=== PATIENT | male | born 1960 | race Caucasian/White ===

== ENCOUNTER 2021-09-15 16:12 | Outpatient (REF) | payer BC, SELFPAY ==
[2021-09-15 17:46] LABS: MANUAL DIFF FLAG NO
[2021-09-15 18:04] LABS: Basophils Absolute Auto 0.1 X10*3/uL (0.0-0.2); Basophils Percent Auto 0.8 % (0-2); Eosinophils Absolute Auto 0.4 X10*3/uL (0.0-0.4); Eosinophils Percent Auto 4.9 % (0-4); Hematocrit 45.2 % (42.0-52.0); Imm Gran Abs Auto 0.04 X10*3/uL (0.00-0.03); Imm Gran Pct Auto 0.5 % (0.0-0.4); Lymphocytes Absolute Auto 2.3 X10*3/uL (1.2-4.9); Lymphocytes Percent Auto 30.3 % (20-40); Mean Corpuscular HGB Conc 33.2 g/dl (31.0-36.0); Mean Corpuscular Hemoglobin 29.9 pg (27.0-33.0); Mean Platelet Volume 10.5 fL (9.4-12.4); Monocytes Absolute Auto 0.6 X10*3/uL (0.1-1.2); Monocytes Percent Auto 7.7 % (2-11); Neutrophils Absolute Auto 4.1 x10*3/uL (2.0-8.3); Neutrophils Percent Auto 55.8 % (45-73); Platelet Count 269 X10*3/uL (160-400); Red Blood Count 5.02 X10*6/uL (4.60-5.80); Red Cell Distribution Width 13.2 % (11.0-16.0); White Blood Count 7.4 X10*3/uL (4.8-10.8)
[2021-09-15 18:09] LABS: Alanine Aminotransferase 24 U/L (0-40); Albumin Level 4.1 g/dL (3.5-5.0); Alkaline Phosphatase 75 U/L (39-117); Anion Gap 11 (12-20); Aspartate Amino Transferase 14 U/L (5-37); Bilirubin Total 0.5 mg/dL (0.0-1.0); Blood Urea Nitrogen 21 mg/dL (9-16); Calcium 9.5 mg/dL (8.4-10.2); Carbon Dioxide 29 mmol/L (22-29); Chloride 105 mmol/L (96-108); Estimated Glomerular Filt Rate > 60; Glucose Random 89 mg/dL (60-115); Potassium 4.4 mmol/L (3.3-5.1); Sodium 141 mmol/L (135-145); Total Protein 6.7 g/dL (6.5-8.0)
[2021-09-15 18:29] LABS: Thyroid Stimulating Hormone 3.79 uIU/mL (0.32-4.0); Vitamin D 25-OH Total 36.5 ng/mL (>30)
[2021-09-16 06:30] LABS: Estimated Average Glucose 123 mg/dL; Hemoglobin A1c % 5.9 %
== END 2021-09-15 16:13 | disposition home or self-care (01) ==
LOC: HO.MANLDS 16:12
PROVIDERS: PCP Internal Medicine; Visit Provider Internal Medicine
DX: R73.01 Impaired fasting glucose (principal)
CPT/HCPCS: 36415; 80053; 82306; 83036; 84443; 85025

== ENCOUNTER 2023-09-12 11:21 | Outpatient (REF) | payer BC, SELFPAY ==
[2023-09-12 13:48] LABS: Estimated Average Glucose 117 mg/dL; Hemoglobin A1c % 5.7 % (<6.0)
[2023-09-12 14:42] LABS: Creatinine Urine 213.19 mg/dL; Microalbum/Creatinine Ratio Ur 10.3 ug/mg cr (<30)
[2023-09-12 14:48] LABS: Alanine Aminotransferase 30 U/L (0-40); Albumin Level 3.9 g/dL (3.5-5.0); Alkaline Phosphatase 73 U/L (39-117); Anion Gap 8 (12-20); Aspartate Amino Transferase 16 U/L (5-37); Bilirubin Total 0.5 mg/dL (0.0-1.0); Blood Urea Nitrogen 22 mg/dL (9-16); Calcium 9.1 mg/dL (8.4-10.2); Carbon Dioxide 27 mmol/L (22-29); Chloride 107 mmol/L (96-108); Estimated Glomerular Filt Rate > 60; Glucose Random 103 mg/dL (60-115); Potassium 3.8 mmol/L (3.3-5.1); Sodium 138 mmol/L (135-145); Total Protein 6.9 g/dL (6.5-8.0)
[2023-09-12 14:51] LABS: Free T4 (Free Thyroxine) 0.75 ng/dL (0.71-1.85)
== END 2023-09-12 11:22 | disposition home or self-care (01) ==
LOC: HO.MANLDS 11:21
PROVIDERS: Visit Provider Internal Medicine
DX: E03.9 Hypothyroidism, unspecified (principal); E11.9 Type 2 diabetes mellitus without complications
CPT/HCPCS: 36415; 80053; 82043; 82570; 83036; 84439; 84443

== ENCOUNTER 2023-10-11 08:26 | Outpatient (REF) | payer BC, SELFPAY ==
[2023-10-11 13:45] LABS: Estimated Average Glucose 117 mg/dL; Hemoglobin A1c % 5.7 % (<6.0)
[2023-10-11 13:52] LABS: Creatinine Urine 270.59 mg/dL; Microalbum/Creatinine Ratio Ur 9.6 ug/mg cr (<30)
[2023-10-11 13:54] LABS: Alanine Aminotransferase 27 U/L (0-40); Albumin Level 3.6 g/dL (3.5-5.0); Alkaline Phosphatase 152 U/L (39-117); Anion Gap 13 (12-20); Aspartate Amino Transferase 18 U/L (5-37); Bilirubin Total 0.5 mg/dL (0.0-1.0); Blood Urea Nitrogen 21 mg/dL (9-16); Carbon Dioxide 26 mmol/L (22-29); Chloride 106 mmol/L (96-108); Cholesterol 124 mg/dL (<200); Estimated Glomerular Filt Rate > 60; Glucose Random 92 mg/dL (60-115); HDL Cholesterol 31 mg/dL (>40); LDL Cholesterol Calculated 83 mg/dL (<100); Sodium 141 mmol/L (135-145); Total Protein 6.8 g/dL (6.5-8.0); Triglycerides 53 mg/dL (<150)
== END 2023-10-11 08:27 | disposition home or self-care (01) ==
LOC: HO.MANLDS 08:26
PROVIDERS: Visit Provider Internal Medicine
DX: E11.9 Type 2 diabetes mellitus without complications (principal)
CPT/HCPCS: 36415; 80053; 80061; 82043; 82570; 83036

== ENCOUNTER 2023-10-17 12:04 | Outpatient (REF) | payer BC, SELFPAY ==
[2023-10-17 18:37] LABS: Free T4 (Free Thyroxine) 0.86 ng/dL (0.71-1.85); Thyroid Stimulating Hormone 5.33 uIU/mL (0.32-4.0)
== END 2023-10-17 12:05 | disposition home or self-care (01) ==
LOC: HO.MANLDS 12:04
PROVIDERS: Visit Provider Internal Medicine
DX: E03.9 Hypothyroidism, unspecified (principal)
CPT/HCPCS: 36415; 84439; 84443

== ENCOUNTER 2024-01-30 11:21 | Outpatient (REF) | payer BC, SELFPAY ==
[2024-01-30 13:10] LABS: Appearance Urine Clear; Color Urine Yellow; Glucose Urine UA Negative (Negative); Leukocyte Esterase Urine Moderate (2+) (Negative); Nitrite Urine Negative (Negative); Specific Gravity - Urine 1.015 (1.005-1.025); UMIC TRIGGER UACC YES; Urine Blood Trace (Negative); Urine Ketones Negative (Negative); Urine Protein Negative (Neg-Trace)
[2024-01-30 13:39] LABS: Bacteria Urine None Seen (None Seen); Hyaline Casts Urine 0-2 /LPF (0-2); Squamous Epithelial Cell Urine 0-2 /HPF (0-2); UACC Culture Trigger YES; WBC Urine >50 /HPF (0-5)
== END 2024-01-30 11:22 | disposition home or self-care (01) ==
LOC: HO.MANLNP 11:21
PROVIDERS: Visit Provider Internal Medicine
DX: R30.0 Dysuria (principal)
CPT/HCPCS: 81001; 81003; 87086

== ENCOUNTER 2024-08-21 12:10 | Outpatient (REF) | payer SELFPAY ==
--- OUTSIDE RECORDS SUMMARY | 2024-08-21 15:19 | XMS_ITS | Data Portability ---
Author Organization [facility] (formerly [facility], Home Service Address [address] [address] Assessment Encounter Date Assessment Date Assessment LastModified by Organization Details LastModified Time 09/16/2023 09/16/2023 [id number] [place] [id number] (CHAIR MAKER) MDM MODERATE MUST MEET 2 OUT OF 3 ELEMENTS: PROBLEMS, DATA OR RISK ELEMENT 1: PROBLEMS ADDRESSED 1 OR MORE CHRONIC ILLNESS WITH EXACERBATION OR 2 OR MORE STABLE CHRONIC ILLNESSES OR 1 UNDIAGNOSED NEW PROBLEM OR 1 ACUTE ILLNESS W/SYMPTOMS OR 1 ACUTE COMPLICATED INJURY ELEMENT 2: DATA MUST MEET 1 OF 3 CATEGORIES CATEGORY 1: REVIEW OF PRIOR EXTERNAL NOTES, REVIEW OF RESULTS, ORDERING OF EACH TEST, ASSESSMENT REQUIRING INDEPENDENT HISTORIAN OR CATEGORY 2: INDEPENDENT INTERPRETATION OF TESTS BY ANOTHER PHYSICIAN OR SPECIALIST OR CATEGORY 3: DISCUSSION OF MGT OR TEST INTERPRETATION W/EXTERNAL PHYSICIAN OR SPECIALIST ELEMENT 3: RISK RISK OF COMPLICATIONS AND/OR MORBIDITY OR MORTALITY OF PATIENT MANAGEMENT PROVIDER MUST THOROUGHLY DOCUMENT EACH ELEMENT THAT IS COVERED Not available 09/16/2023 15:28:28 11/22/2023 11/22/2023 [id number] [place] [id number] (CHAIR MAKER) MDM HIGH MUST MEET 2 OUT OF 3 ELEMENTS: PROBLEMS, DATA OR RISK ELEMENT 1: PROBLEMS 1 OR MORE CHRONIC ILLNESS W/SEVERE EXACERBATION, PROGRESSION MAY REQUIRE HOSPITAL LEVEL CARE OR 1 ACUTE OR CHRONIC ILLNESS OR INJURY THAT POSES A THREAT TO LIFE OR BODILY FUNCTION ELEMENT 2: DATA: MUST MEET 2 OF 3 CATEGORIES CATEGORY 1 REVIEW OF PRIOR EXTERNAL NOTES REVIEW OF THE RESULTS ORDERING OF EACH TEST ASSESSMENT REQUIRING INDEPENDENT HISTORIAN(S) CATEGORY 2: INDEPENDENT INTERPRETATION OF TESTS BY ANOTHER PROVIDER/SPECIALI ST CATEGORY 3: DISCUSSION OF MGT OR TEST INTERPRETATION W/EXTERNAL PHYSICIAN/SPECIAL IST ELEMENT 3: RISK HIGH RISK OF MORBIDITY FROM ADDITIONAL DIAGNOSTIC TESTING OR TREATMENT PROVIDER MUST THOROUGHLY DOCUMENT EACH ELEMENT THAT IS COVERED Not available 11/22/2023 14:46:18 01/30/2024 01/30/2024 [id number] [place] [id number] (CHAIR MAKER) MDM HIGH MUST MEET 2 OUT OF 3 ELEMENTS: PROBLEMS, DATA OR RISK ELEMENT 1: PROBLEMS 1 OR MORE CHRONIC ILLNESS W/SEVERE EXACERBATION, PROGRESSION MAY REQUIRE HOSPITAL LEVEL CARE OR 1 ACUTE OR CHRONIC ILLNESS OR INJURY THAT POSES A THREAT TO LIFE OR BODILY FUNCTION ELEMENT 2: DATA: MUST MEET 2 OF 3 CATEGORIES CATEGORY 1 REVIEW OF PRIOR EXTERNAL NOTES REVIEW OF THE RESULTS ORDERING OF EACH TEST ASSESSMENT REQUIRING INDEPENDENT HISTORIAN(S) CATEGORY 2: INDEPENDENT INTERPRETATION OF TESTS BY ANOTHER PROVIDER/SPECIALI ST CATEGORY 3: DISCUSSION OF MGT OR TEST INTERPRETATION W/EXTERNAL PHYSICIAN/SPECIAL IST ELEMENT 3: RISK HIGH RISK OF MORBIDITY FROM ADDITIONAL DIAGNOSTIC TESTING OR TREATMENT PROVIDER MUST THOROUGHLY DOCUMENT EACH ELEMENT THAT IS COVERED Not available 01/30/2024 11:16:47 Plan of Treatment Reminders Order Date Submit Date Provider Last Modified By Organization Details Last Modified Time Details Appointments None recorded. Lab urinalysis complete, reflex culture 2023 024 [facility], [address] [place] [address], [address], 4 11:11:26 TSH + free T4, serum 2023 024 [facility], [place], [address], 4 11:15:07 TSH, serum or plasma 2023 024 [facility], [address] [place] [address], [address], 4 15:31:[address] referral 2023 024 michael Deshpande MD, [address] [place] [address], [address], 4 08:14:45 Procedures None recorded. Surgeries None recorded. Imaging None recorded. Medication Orders triamcinol one acetonide 0.1 % topical cream 2023 024 [id number], [address] [place], [address], 14:45:34 amoxicilli n 500 mg tablet 2023 024 [id number], [address] [place], [address], 14:21:39 levothyrox ine 25 mcg tablet 2023 024 [id number], [address] [place], [address], 10:39:33 Patient TargetsNo targets recorded. Patient Instructions Encounter Date Encounter Id Patient Instructions Last Modified By Organization Details Last Modified Time 09/16/2023 [id number] hypothyroidism: care instructions Not available 09/16/2023 15:30:00 01/30/2024 [id number] painful urinatio n (dysuria): care instructions Not available 01/30/2024 11:15:13 leg and ankle edema: care instructions Not available 01/30/2024 11:13:41 aortic valve stenosis: care instructions Not available 01/30/2024 11:13:41 hypothyroidism: care instructions Not available 01/30/2024 11:13:41 chronic obstructive pulmonary disease (COPD): care instructions Not available 01/30/2024 11:13:41 learning about copd and how to prevent lung infections Not available 01/30/2024 11:13:41 03/13/2024 [id number] pulse oximetry* Not available 03/13/2024 12:08:22 Reason for Referral Director Workforce Management Referral for At rial fibrillation needs referral; hx of afib, open heart surgery (insurance referral) Referring Physician: Heather Peralta, Internal Medicine, Encounter Date: 10/12/2023 Results Created Date Observation Date Name Description Value Unit Range Abnormal Flag Note LastModifiedBy Organization Detail LastModifiedTime 09/05/1909/05/2023 pulse oxime try* Result 96 Not Available [facility] [address], [place], [address], 08/30/2023 10:45:54 03/13/2003/13/2024 pulse oxime try* Result 95 Not Available [facility] [address], [place], [address], 03/12/2024 08:40:52 Result Notes None recorded. Problems Name Problem SNOMED Code Status Onset Date Resolution Date Notes Provider Name and Address Organization Details Recorded Time Allergic rhinitis 24176022 Active 2021 Not Available [facility] 3 12:53:18 Type 2 diabetes mellitus 55348829 Active 2022 Not Available [facility] 3 12:53:18 Acute systolic heart failure 187729775 Completed 202211/22/2023 Ceferino Wright DO [address] [place] [address], [address], [facility] 4 14:43:57 Atrial fibrilla tion 46679636 Completed 202211/22/2023 Ceferino Wright DO [address] [place] [address], [address], [facility] 4 14:43:46 Severe aortic valve stenosis 526155884 Completed 202211/22/2023 Ceferino Wright DO [address] [place] [address], [address], [facility] 4 14:43:39 Pain of left shoulder joint 2868881188 4068003 Active 2022 Ceferino Wright DO [address] [place] [address], [address], [facility] 3 23:23:14 Tendinit is of left rotator cuff 6368685570 0032050 Active 2022 Ceferino Wright DO [address] [place] [address], [address], [facility] 3 15:32:36 Congesti ve heart failure 98693892 Completed 202311/22/2023 Ceferino Wright, DO [address] [place] [address], [address], [facility] 4 14:43:34 Hypothyr oidism 69632455 Active 2023 Ceferino Wright, DO [address] [place] [address], [address], [facility] 4 16:13:38 Eczema 98946840 Active 2023 Ceferino Wright, DO [address] [place] [address], [address], [facility] 4 14:44:10 Allergic reaction to drug 074489182 Active 2023 Ceferino Wright, DO [address] [place] [address], [address], [facility] 4 22:23:10 Aortic valve stenosis 68446922 Active 2023 bicuspid Ceferino Wright DO [address] [place] [address], [address], [facility] 4 14:34:50 Edema of lower extremit y 544156318 Active 2023 Ceferino Wright, DO [address] [place] [address], [address], [facility] 4 11:09:15 Dysuria 51845258 Active 2023 Ceferino Wright DO [address] [place] [address], [address], [facility] 4 11:14:23 Acute urinary tract infectio n 047376872 Active 2023 Ceferino Wright DO [address] [place] [address], [address], [facility] 4 16:14:37 Asthma 292918504 Active 2017 Not Available [facility] 3 12:53:18 Chronic obstruct jesus pulmonar y disease 67507943 Active 2017 Not Available [facility] 3 12:53:18 Tobacco user 903241243 Active 2017 Not Available [facility] 3 12:53:18 Tinea pedis 0920716 Active 2017 Not Available [facility] 3 12:53:18 Problem Notes None recorded. Medical Equipment None Reported. Allergies No known drug allergies Medications Name Sig Start Date Stop Date Status Note LastModified by Organization Details LastModified Time cyclobenzap rine 10 mg tablet TAKE 1 TABLET BY MOUTH 2 TIMES A DAY BEFORE BREAKFAST AND DINNER 11/21 completed Not Available Not Available Not Available furosemide 40 mg tablet TAKE 1 TABLET BY MOUTH EVERY DAY IN THE MORNING 2023 active Not Available Not Available Not Avai lable bupropion HCl SR 150 mg tablet,12 hr sustained-r elease Take 1 tablet twice a day by oral route for 30 days. 08/10 completed Not Available Not Available Not Available atorvastati n 80 mg tablet TAKE 1 TABLET BY MOUTH EVERY DAY active Not Available Not Available No t Available cetirizine 10 mg tablet TAKE 1 TABLET BY MOUTH EVERY DAY 2023 active Not Available Not Available Not Avai lable metoprolol tartrate 100 mg tablet TAKE 1 TABLET (100 MG TOTAL) BY MOUTH 2 (TWO) TIMES A DAY. 01/29 completed Not Available Not Available Not Available amiodarone 200 mg tablet TAKE 1 TABLET BY MOUTH EVERY DAY active Not Available Not Available No t Available metoprolol succinate ER 50 mg tablet,exte nded release 24 hr TAKE 1 TABLET BY MOUTH EVERY DAY active Not Available Not Available No t Available fluconazole 200 mg tablet Take 1 tablet every day by oral route for 7 days. 03/27 completed Not Available Not Available Not Available ciprofloxac in 500 mg tablet TAKE 1 TABLET BY MOUTH EVERY 12 HOURS FOR 7 DAYS active Not Available Not Available No t Available aspirin 81 mg tablet,hang yed release TAKE 1 TABLET BY MOUTH EVERY DAY active Not Available Not Available No t Available triamcinolo ne acetonide 0.1 % topical cream APPLY THIN COAT TO AFFECTED AREA TWICE A DAY 2023 active Not Available Not Available Not Avai lable spironolact one 25 mg tablet TAKE 1 TABLET (25 MG TOTAL) BY MOUTH DAILY. PLEASE CONTACT YOUR CARDIOLOG IST FOR REFILLS active Not Available Not Available No t Available amoxicillin 500 mg tablet TAKE 4 TABLETS BY MOUTH EVERY DAY FOR 1 DAY active Not Available Not Available No t Available levothyroxi ne 25 mcg tablet TAKE 1 TABLET BY MOUTH EVERY DAY FOR 30 DAYS 01/29 completed Not Available Not Available Not Available levothyroxi ne 75 mcg tablet TAKE 1 TABLET BY MOUTH EVERY DAY FOR 30 DAYS active Not Available Not Available No t Available potassium chloride ER 20 mEq tablet,exte nded release(par t/cryst) TAKE 1 TABLET BY MOUTH EVERY DAY FOR 7 DAYS 11/21 completed Not Available Not Available Not Available tamsulosin 0.4 mg capsule TAKE 1 CAPSULE BY MOUTH EVERY DAY active Not Available Not Available No t Available levothyroxi ne 50 mcg tablet 1 po qd 2024 active Not Available Not Available Not Avai lable docusate sodium 100 mg capsule TAKE 2 CAPSULES BY MOUTH EVERY DAY 11/21 completed Not Available Not Available Not Available montelukast 10 mg tablet TAKE 1 TABLET BY MOUTH EVERY DAY active Not Available Not Available No t Available halobetasol propionate 0.05 % topical cream 08/10 completed Not Available Not Available Not Available digoxin 125 mcg (0.125 mg) tablet TAKE 1 TABLET (0.125 MG TOTAL) BY MOUTH DAILY. PLEASE CONTACT YOUR CARDIOLOG IST FOR REFILLS 10/11 completed Not Available Not Available Not Available furosemide 20 mg tablet TAKE 1 TABLET BY MOUTH DAILY 04/08 completed Not Available Not Available Not Available methylpredn isolone 4 mg tablets in a dose pack TAKE 6 TABLETS ON DAY 1 DIRECTED ON PACKAGE AND DECREASE BY 1 TAB EACH DAY FOR A TOTAL OF 6 DAYS 01/29 completed Not Available Not Available Not Available albuterol sulfate HFA 90 mcg/actuati on aerosol inhaler TAKE 2 PUFFS BY MOUTH EVERY 4 HOURS NEEDED active Not Available Not Available No t Available ketoconazol e 2 % topical cream 08/10 completed Not Available Not Available Not Available fluticasone propionate 50 mcg/actuati on nasal spray,suspe nsion INHALE 1 SPRAY UP THE NOSTRIL ONCE A DAY active Not Available Not Available No t Available rosuvastati n 10 mg tablet Take 1 tablet every day by oral route for 90 days. 03/27 completed Not Available Not Available Not Available metoprolol tartrate 25 mg tablet TAKE 1 TABLET BY MOUTH TWICE A DAY 11/21 completed Not Available Not Available Not Available doxycycline hyclate 100 mg tablet,hang yed release TAKE 1 TABLET BY MOUTH TWICE DAILY FOR 7 DAYS 09/15 completed Not Available Not Available Not Available spironolact one 09/15 completed Not Available Not Available Not Available Xarelto 20 mg tablet TAKE 1 TABLET (20 MG TOTAL) BY MOUTH DAILY WITH DINNER. PLEASE CONTACT YOUR CARDIOLOG IST FOR REFILLS 11/21 completed Not Available Not Available Not Available Eliquis 5 mg tablet TAKE 1 TABLET BY MOUTH TWICE A DAY active Not Available Not Available No t Available fluticasone furoate 200 mcg-vilante rol 25 mcg/dose inhalation powder TAKE 1 PUFF BY MOUTH TWICE A DAY 2024 active Not Available Not Available Not Avai lable Entresto 24 mg-26 mg tablet TAKE 1 TABLET BY MOUTH 2 (TWO) TIMES A DAY. PLEASE CONTACT YOUR CARDIOLOG IST FOR REFILLS 09/04 completed Not Available Not Available Not Available Vitals Date Recorded Body height Body mass index (BMI) Body weight Heart rate Oxygen saturation Oxygen saturation in Arterial blood by Pulse oximetry Systolic blood pressure Diastolic blood pressure Provider Name and Address Organization Details Last Updated DateTime 4 190.5 cm 37.2 kg/m2 362562. 81 g 70 /min 95 % 95 % 128 mm[Hg] 76 mm[Hg] Jenny Quinn [facility] 4 14:51:02 Date Recorded Body height Body mass index (BMI) Body weight Heart rate Respiratory rate Oxygen saturation Oxygen saturation in Arterial blood by Pulse oximetry Body temperature Systolic blood pressure Diastolic blood pressure Provider Name and Address Organization Details Last Updated DateTime 4 190.5 cm 38.7 kg/m2 073215. 63 g 68 /min 18 /min 98 % 98 % 98.1 [degF] 136 mm[Hg] 80 mm[Hg] Yamil Andrade [facility] 4 10:47:21 Date Recorded Body height Body mass index (BMI) Body weight Heart rate Respiratory rate Oxygen saturation Oxygen saturation in Arterial blood by Pulse oximetry Systolic blood pressure Diastolic blood pressure Provider Name and Address Organization Details Last Updated DateTime 4 193.04 cm 37 kg/m2 779538. 8 g 98 /min 18 /min 92 % 92 % 138 mm[Hg] 82 mm[Hg] Yamil Andrade [facility] 4 14:21:03 Date Recorded Body height Body mass index (BMI) Body weight Heart rate Oxygen saturation Oxygen saturation in Arterial blood by Pulse oximetry Systolic blood pressure Diastolic blood pressure Provider Name and Address Organization Details Last Updated DateTime 4 193.04 cm 36.6 kg/m2 679818. 87 g 79 /min 97 % 97 % 166 mm[Hg] 92 mm[Hg] Yamil Andrade [facility] 4 10:41:08 Date Recorded Body height Body mass index (BMI) Body weight Heart rate Oxygen saturation Oxygen saturation in Arterial blood by Pulse oximetry Systolic blood pressure Diastolic blood pressure Provider Name and Address Organization Details Last Updated DateTime 4 193.04 cm 36.4 kg/m2 304093. 12 g 92 /min 95 % 95 % 128 mm[Hg] 78 mm[Hg] Karen Hughes [facility] 4 11:44:18 Social History Question Answer Notes LastModified by Organizat ion Details LastModified Time Tobacco Smoking Status Former Smoker Not Available [facility] 04/22/2020 03:36:23 What Is Your Level Of Alcohol Consumption? Occasional [id number] Information not available 04/22/2020 What Is Your Level Of Caffeine Consumption? Moderate 3-4 Cup Coffee Per Day [id number] Information not available 04/22/2020 Do You Or Have You Ever Used E-cigarettes Or Vape? Current User Of Electronic Cigarettes [email or web address] Information not available 03/11/2023 What Was The Date Of Your Most Recent Tobacco Screening? 01/30/2024 [email or web address] Information not available 01/30/2024 Do You Use Any Illicit Or Recreational Drugs? No [email or web address] Information not available 03/11/2023 Do You Or Have You Ever Used Any Other Forms Of Tobacco Or Nicotine? No [email or web address] Information not available 09/05/2023 Sex: Unknown Functional Status Question Answer Note LastModified by Organization D etails LastModified Time What is your exercise level? None [id number] Information not available 04/22/2020 Mental Status None recorded. Family History Nothing Reported. Medical History No medical history recorded. Immunizations Vaccine Type Date Status Note Provider Nam e and Address Organization Details Recorded Time zoster recombinant 2 completed Not Available [facility] 06/08/2023 17:01:31 COVID-19, mRNA, LNP-S, PF, 30 mcg/0.3 mL dose 1 completed Not Available [facility] 06/08/2023 17:01:31 COVID-19, mRNA, LNP-S, PF, 30 mcg/0.3 mL dose 1 completed Not Available [facility] 06/08/2023 17:01:31 COVID-19, mRNA, LNP-S, PF, 30 mcg/0.3 mL dose 1 completed Not Available [facility] 06/08/2023 17:01:31 Influenza, split virus, quadrivalent, preservative 1 completed Not Available [facility] 06/08/2023 17:01:31 zoster recombinant 2 completed Not Available [facility] 06/08/2023 17:01:31 Influenza, split virus, quadrivalent, preservative 8 completed Not Available [facility] 06/08/2023 17:01:31 Influenza, split virus, quadrivalent, preservative 9 completed Not Available [facility] 06/08/2023 17:01:31 Past Encounters Encounter ID Performer Location Encounter Start Date Encounter Closed Date Diagnosis/Indication Diagnosis SNOMED-CT Code Diagnosis ICD10 Code Diagnosis Note [id number] DO Cherelle Harper [facility] [address] [address] 11/22/2017 15:29:46 11/22/2017 16:19:17 Chronic obstructive pulmonary disease 77442546 J44.9 here for rechk and still smoking but quit last month but smoked again and then tried to quit again Impaired f asting glycemia 672776677 R73.01 needs a1c draawn Asthma 674439606 J45.90 9 ok to cont symbicort as long as he feels ok breo rx ok in 1 week Tobacco user 880793939 Z 72.0 will try to use wellbutrin Tinea pedis 0657417 B35. 3 diflucan as it is not clearing [id number] Ceferino Wright [facility] [address] [address] 01/10/2018 14:57:54 01/10/2018 16:18:16 Tobacco user 787008608 Z72.0 will try to use wellbutrin Chronic ob structive pulmonary disease 60902284 J44.9 here for rechk and still smoking but quit last month but smoked again and then tried to quit again Impaired f asting glycemia 983954818 R73.01 needs a1c drawn still not done [id number] Ceferino Wright [facility] [address] [address] 03/27/2019 10:20:22 03/27/2019 11:42:26 Adult health examination 876040028 Z00.01 overweight but has quit smoking does have a lot of fatigue stopped using tobacco is vaping Hepatitis C screening 41 5485433 Z11.59 Screening for malignant neoplasm of colon 223975233 Z12.11 Asthma 009776637 J45.90 9 ok to cont symbicort as long as he feels ok breo rx ok in 1 week [id number] Ceferino Wright [facility] [address],[place] [address] 08/10/2019 13:37:51 08/10/2019 15:12:39 Asthma 539431660 J45.909 ok to cont symbicort as long as he feels ok breo rx ok in 1 week Tobacco user 777028383 Z 72.0 has ceased smoking now vaping Essential hypertension 52546954 I10 will recheck at next [facility] t to see if medication needs to be started [id number] Ceferino Wright [facility] [address] [address] 03/10/2020 15:21:22 03/10/2020 16:15:02 Asthma 123638062 J45.909 ok to cont symbicort as long as he feels ok breo rx ok in 1 week Chronic ob structive pulmonary disease 58992106 J44.9 is not smoking but is using vape Impaired f asting glycemia 860794691 R73.01 needs a1c drawn still not done [id number] Ceferino Wright [facility] [address] [address] 08/20/2020 13:24:30 08/20/2020 14:21:56 Active or passive immunization 332160059 Z23 Adult heal th examination 484379184 Z00.01 overweight but has quit smoking does have a lot of fatigue stopped using tobacco is vaping though Asthma 993992871 J45.90 9 ok to cont symbicort as long as he feels ok breo rx ok in 1 week [id number] Ceferino Wright [facility] [address] [address] 09/15/2021 14:39:06 09/15/2021 15:50:35 Essential hypertension 74492071 I10 will recheck at next appointmen t to see if medication needs to be started Chronic ob structive pulmonary disease 66583394 J44.9 is not smoking but is using vape Impaired f asting glycemia 000580928 R73.01 needs a1c drawn still not done Allergic rhinitis 290686 04 J30.9 [id number] Ceferino Wright [facility] [address] [address] 12/30/2021 14:26:44 12/30/2021 15:22:43 Essential hypertension 61294583 I10 will recheck at next appointmen t to see if medication needs to be startedsti ll elevated and with leg edema we will start him on triamteren e hctz Tobacco user 999288948 Z 72.0 has ceased smoking now vaping Chronic ob structive pulmonary disease 79033966 J44.9 is not smoking but is using vape Impaired f asting glycemia 163857641 R73.01 needs a1c drawn still not done Active or passive immunization 795343279 Z23 patient advised he is due for tdap Screening for malignant neoplasm of colon 799227529 Z12.11 refuses Allergic rhinitis 849376 04 J30.9 [id number] Ceferino Wright [facility] [address],[place] [address] 02/01/2023 09:41:13 02/01/2023 10:33:53 Asthma 243835218 J45.909 ok to cont symbicort as long as he feels ok breo rx ok in 1 week Chronic ob structive pulmonary disease 33162340 J44.9 is not smoking but is using vape Acute syst olic heart failure 883201087 I50.21 stable at the moment using high dose diuresis and beta blok had siuresed ove r 20lbs in hospital w e will cont the current meds until his heart cath Atrial fibrillation 4943 6004 I48.91 not gone but is under control with VR of 88no symptoms on high dose beta block and dig etc Severe aor tic valve stenosis 572996631 I35.0 await heart cath [id number] Ceferino Wright, [facility] [address],[place] [address] 03/11/2023 14:16:52 03/11/2023 16:10:09 Type 2 diabetes mellitus 56232852 E11.9 last a1c is 6.9 Acute syst olic heart failure 189545155 I50.21 stable at the moment using high dose diuresis and beta blok had siuresed ove r 20lbs in hospital w e will cont the current meds until his heart cath Asthma 900090664 J45.90 9 ok to cont symbicort as long as he feels ok breo rx ok in 1 week Atrial fibrillation 4943 6004 I48.91 not gone but is under control with VR of 88no symptoms on high dose beta block and dig etc Chronic ob structive pulmonary disease 96182602 J44.9 is not smoking but is using vape taking breo with good results Severe aor tic valve stenosis 874632227 I35.0 await heart cath [id number] Ceferino Wright [facility] [facility] [address] [facility],[place] [address] 06/07/2023 08:33:36 06/07/2023 16:02:28 Asthma [id number] J45.909 ok to cont symbicort as long as he feels ok breo rx ok in 1 week Atrial fibrillation 4943 6004 I48.91 not gone but is under control with VR of 88no symptoms on high dose beta block and dig etc Chronic ob structive pulmonary disease 45312645 J44.9 is not smoking but is using vape taking breo with good results Tendinitis of left rotator cuff [id number] M67.814 will refer for david injection Severe aor tic valve stenosis 788180335 I35.0 await considerat ion for TAVR Type 2 livier betes mellitus 85158236 E11.9 last a1c is 6.4 was 6.9 [id number] Ceferino Wright [facility] [address] [facility] [address] 09/05/2023 15:44:29 09/05/2023 16:18:34 Type 2 diabetes mellitus 43929823 E11.9 last a1c is 6.4 was 6.9 Chronic ob structive pulmonary disease 19806059 J44.9 is not smoking but is using vape taking breo with good results Congestive heart failure 19910521 I50.9 all secondary to severe to critical Atrial fibrillation 4943 6004 I48.91 not gone but is under control with VR of 88no symptoms on high dose beta block and dig etc Severe aor tic valve stenosis 077605465 I35.0 scheduled to have surgery september 2told he cannot smoke prior and to stop immediatel j]=y including pottold to stop the spironolac tone as he is still very dizzy andlighthe aded Hypothyroidism 55676144 E03.9 [id number] Ceferino Wright [facility] Internal [facility] [address] [facility] [facility] [facility] [place] [address] 09/16/2023 14:17:17 09/16/2023 15:44:59 Type 2 diabetes mellitus 17627909 E11.9 last a1c is 6.4 was 6.9 Atrial fibrillation 4943 6004 I48.91 not gone but is under control with VR of 88no symptoms on high dose beta block and dig etc Congestive heart failure 23587741 I50.9 all secondary to severe to critical Hypothyroidism 07757369 E03.9 [id number] KENN LEBRON [facility] [address] [facility] [facility] [address] 10/12/2023 10:38:43 10/12/2023 14:25:32 Preventive dental procedure 08906690 Z01.20 needs to be on amoxicilli n prior to dental appts Hypothyroidism 42865061 E03.8 need new standing order Atrial fibrillation 4943 6004 I48.0 needs print out History of cardiovascular surgery 797017394 Z48.812 stable [id number] Ceferino Wright DO [facility] [address] [facility] [facility],[place] [address] 11/22/2023 13:59:32 11/22/2023 14:49:21 Hypothyroidism 66900046 E03.8 had thyroid adjusted Depression screening 171 277566 Z13.31 negative Congestive heart failure 90004853 I50.9 critical is now excellent with repair and he is out of heart failure now and is off the diuretics Chronic ob structive pulmonary disease 94951674 J44.9 is not smoking but is using vape taking breo with good results Atrial fibrillation 4943 6004 I48.0 now under control Eczema 48438775 L30.9 will need to treat [id number] Ceferino Wright DO [facility] [address] [facility],[place] [address] 01/30/2024 10:32:59 01/30/2024 11:18:26 Chronic obstructive pulmonary disease 94817917 J44.9 is not smoking but is using vape taking breo with good results Hypothyroidism 62489368 E03.8 had thyroid adjusted Edema of l ower extremity 032763284 R60.0 will discuss with cardiol to increase the spironoalc tone Aortic valve stenosis 60 070476 I35.0 now s/p repair on september 19 and is coming to the end of cardiac rehab Dysuria 72231501 R30.0 having issue with burning at end of peeing [id number] DO [facility] [address] [facility] [facility],[place] [address] 03/13/2024 11:21:56 03/13/2024 13:55:34 Active or passive immunization 546007412 Z23 patient advised he is due for tdap Adult heal th examination 518891301 Z00.00 overweight but has quit smoking does have a lot of fatigue stopped using tobacco is vaping though Health Concerns Section Related Observation LastModified by Organization Detai ls LastModified Time None Recorded Concern Status LastModified by Organization Details LastModified Time None Recorded Advance Directives Directive None Recorded Payers Encounter Date Sequence Insurance Name Policy Number Policy Kumari Covered Member ID Kumari Member ID Guarantor Name 09/16/2023 1 [place] [id number] 3 Sam Marvel [id number] Sam Marvel 10/12/2023 1 [place] [id number] 3 Sam Marvel [id number] Sam Marvel 11/22/2023 1 [place] [id number] 3 Sam Marvel [id number] Sam Marvel 01/30/2024 1 [place] [id number] 3 Sam Marvel [id number] Sam Marvel 03/13/2024 1 [place] [id number] 3 Sam Marvel [id number] Sam Marvel Notes Date Note Type Note Provider Name a nd Address Organization Details Recorded Time 4 text/html here fpor uriahk going into the hospital on tuesdayrelates that the surgery for bypass is going to be done by dr campos currently does get a twinge from any signif exertion Ceferino Wright DO [address] [facility], [place], [address], [facility] 09/16/2023 15:30:18 4 text/html hospital f/u the patient reports he is doing well after TAVR surgeryafib controlledneeds monitored thyroid levels, coming off amiodarone so he should be able to come off the levo soon as wellmonitoring weights, bounces back and forth, nothing significant yet but knows to reports excess fluid build up afib doing well needs amox prior to dental surgery, will send outotherwise doing well meds verifiedno changes needed at this time KENN LEBRON [address] [place], [address], [facility] 10/12/2023 11:24:31 4 text/html here for rechk a nd is doing better off the amiodarone relates the dizziness has gotten a bit better taking a ER metoprololrelates is slowly making progress in cardiac rehab Ceferino Wright DO [address] [place], [address], [facility] [place] 11/22/2023 14:46:35 4 text/html COPDReported bypatient.Severity:not limiting Associated Symptoms:no snoring; no excessive daytime sleepiness; no arousals from sleep; no dyspnea; no decrease in exercise capacity; no fatigue; not coughing up sputum; no cough; no fever; no wheezing; no weight loss; no depressionCare Management - DiabetesReported bypatient.Self Care:seeing eye doctor yearly for dilated eye exam; checking feet regularly; normal range of home blood sugars (in the low 100s); no side effects from medications Associated Symptoms:symptoms are usually well controlled; no fatigue; no dizziness; no excessive sweating; no headaches; no confusion; no increased thirst; no increased appetite; no increased urination; no blurred vision; no numbness of feet; no calluses on feet here for b3ninresen doing cardiac rehabSTILL SMOKING !!! Ceferino Wright DO [address] [place], [address], [facility] 01/30/2024 11:17:17 4 text/html Annual WellnessReported bypatient.Diet and Nutrition:healthy diet Fracture Risk:no history of fractures; no recent explained fracture; no sudden unexplained fractures; no previous musculoskeletal injuries Physical Activity:exercises on a regular basis; recent increase in physical activity; good physical condition Additional Lifestyle Factors:no tobacco use; no alcohol intake; stopped drinking alcohol Depression Risk:never feels sad, empty, or tearful; no loss of interest in activities; no significant changes in weight; no sleep disturbances or insomnia; no agitation; no loss of energy; no feelings of worthlessness or guilt; no thoughts of suicide; no history of depression; no history of mood disorders Hearing:no loss of hearing Vision:no vision problems Ceferino Wright, DO [address] [place] [address], [address], [facility] 03/13/2024 12:10:20
[2024-08-21 18:39] LABS: Estimated Average Glucose 123 mg/dL; Hemoglobin A1C 162.3042 umol/L; Hemoglobin A1c % 5.9 % (<6.0); Total Hemoglobin (HGBA1C) 3968.2951 umol/L
[2024-08-21 18:58] LABS: Alanine Aminotransferase 45 U/L (0-40); Alkaline Phosphatase 108 U/L (39-117); Anion Gap 11 (12-20); Aspartate Amino Transferase 36 U/L (5-37); Bilirubin Total 0.7 mg/dL (0.0-1.0); Blood Urea Nitrogen 17 mg/dL (9-16); Calcium 8.9 mg/dL (8.4-10.2); Carbon Dioxide 25 mmol/L (22-29); Chloride 107 mmol/L (96-108); Cholesterol 120 mg/dL (<200); Estimated Glomerular Filt Rate > 60; Glucose Random 98 mg/dL (60-115); HDL Cholesterol 32 mg/dL (>40); LDL Cholesterol Calculated 71 mg/dL (<100); Sodium 139 mmol/L (135-145); Total Protein 7.3 g/dL (6.5-8.0); Triglycerides 87 mg/dL (<150)
[2024-08-21 19:10] LABS: Creatinine Urine 69.76 mg/dL; Microalbumin Urine < 5.0 mg/L; Thyroid Stimulating Hormone 3.29 uIU/mL (0.32-4.0)
[2024-08-21 19:21] LABS: T4 Thyroxine 6.7 ug/dL (4.5-12.0)
== END 2024-08-21 12:11 | disposition home or self-care (01) ==
LOC: HO.MANLDS 12:10
PROVIDERS: Visit Provider Internal Medicine
DX: E11.9 Type 2 diabetes mellitus without complications (principal); E03.9 Hypothyroidism, unspecified
CPT/HCPCS: 36415; 80053; 80061; 82043; 82570; 83036; 84436; 84443